=== PATIENT | female | born 1995 | race Two or more races ===

== ENCOUNTER 2023-01-01 13:48 | Emergency (ER) | payer OTHER ==
[~2023-01-01] VITALS: Ht 157.5 cm; Wt 70.8 kg
[2023-01-01] MEDS ORDERED: VENLAFAXINE HCL75 M1 PO (14:07)
[2023-01-01] MEDS ORDERED: BUTALB-ACETAMI1 EACH PO (17:38)
== END 2023-01-01 17:43 | disposition home or self-care (01) ==
LOC: ER 13:48
DX: G44.209 Tension-type headache, unspecified, not intractable (principal); F41.8 Other specified anxiety disorders; Z91.013 Allergy to seafood; Z91.018 Allergy to other foods

== ENCOUNTER 2023-08-12 14:17 | Emergency (ER) | payer OTHER ==
[~2023-08-12] VITALS: Ht 157.5 cm; Wt 68.0 kg
[~2023-08-12 14:17] MED LIST: BUTALB-ACETAMI1 EACH PO; VENLAFAXINE HCL75 M1 PO
[2023-08-12 16:23] LABS: HEMATOCRIT 40.4 % (36.0-45.00); HEMOGLOBIN 13.3 g/dL (12.0-15.00); PLATELET COUNT 323 K/uL (150-450); RED BLOOD COUNT 4.75 M/uL (4.00-6.00); RED CELL DISTRIBUTION WIDTH 13.5 % (11.5-14.5)
[2023-08-12] MEDS ORDERED: AMOX-CLAV 875-1 EAC1 PO (18:13)
[2023-08-12] MEDS ORDERED: SINGULAIR10 MG PO (18:13)
[2023-08-12] MEDS ORDERED: SALINE NASAL SP88 ML NASAL (18:30)
[2023-08-12] MEDS ORDERED: ZYRTEC10 MG PO (18:30)
[2023-08-12] MEDS ORDERED: FLONASE16 GM NASAL (18:30)
== END 2023-08-12 18:51 | disposition home or self-care (01) ==
LOC: ER 14:18
PROVIDERS: Nurse Practitioner Family
DX: J06.9 Acute upper respiratory infection, unspecified (principal); Z91.013 Allergy to seafood; Z91.018 Allergy to other foods; Z20.822 Contact with and (suspected) exposure to COVID-19